=== PATIENT | female | born 1970 | race Caucasian/White ===

== ENCOUNTER 2021-05-15 16:33 | Emergency (ER) | payer BC ==
[2021-05-15 18:12] LABS: HEMOGLOBIN 14.5 gm/dl (12.3-15.3); RED BLOOD COUNT 4.69 M/UL (4.00-5.10); WHITE BLOOD COUNT 3.8 K/UL (4.5-11.0)
[2021-05-15] MEDS ORDERED: MACROBID 100 M100 M1 PO (21:37)
[2021-05-15] MEDS ORDERED: ONDANSETRON ODT4 MG PO (21:37)
== END 2021-05-15 22:26 | disposition home or self-care (01) ==
LOC: ER1 16:33
PROVIDERS: Physician Assistant Medical
DX: U07.1 COVID-19 (principal); N39.0 Urinary tract infection, site not specified
CPT/HCPCS: 80053; 81001; 85025; 96374; 99284; J2405; J7030